=== PATIENT | female | born 1975 | race Caucasian/White ===

== ENCOUNTER 2017-07-22 18:22 | Emergency (ER) | payer MEDICAID, OTHER ==
[~2017-07-22] VITALS: Ht 157.5 cm; Wt 85.1 kg
[~2017-07-22 18:22] MED LIST: CYCL-319 PO; HYDR-3498 PO; IBUP-1542 PO
[2017-07-22 18:27] VITALS: Ht 157.5 cm; Wt 85.1 kg
[2017-07-22] MEDS ORDERED: LIDOCAINE 1% (MDV) 20 ML INJ SC ONE (19:30)
[2017-07-22] MEDS ORDERED: SULF1TAB31 PO (20:00)
[2017-07-22] MEDS ORDERED: IBUP-1542 PO (20:00)
[2017-07-22] MEDS ORDERED: HYDR-906 PO (20:00)
[2017-07-22] MEDS ORDERED: CEPH-443 PO (20:00)
--- NOTE | 2017-07-22 20:43 | ERD ---
ER Documentation Chief Complaint Chief Complaint Complains of vaginal swelling, abscess today HPI This patient is a 42-year-old Frisian-speaking only female with no significant medical history presenting to the emergency department with complaints of abscess to her right labia intermittently for the past 4 days. Symptoms are worsening. It is associated with pain. She denies fevers, chills, or other symptoms currently. ROS All systems reviewed and are negative except as per history of present illness. Medications Home Meds Active Scripts Ibuprofen* (Motrin*) 600 Mg Tab, 600 MG PO Q6, #30 TAB Prov:DWAIN WARNER PA-C 07/22/17 Hydrocodone/Acetaminophen ([place] 5-325 Tablet) 1 Each Tablet, 1 TAB PO Q6H Y for PAIN, #12 TAB Prov:DWAIN WARNER PA-C 07/22/17 Cephalexin* (Keflex*) 500 Mg Capsule, 500 MG PO TID for 7 Days, #21 CAP Prov:DWAIN WARNER PA-C 07/22/17 Sulfamethoxazole/Trimethoprim* (Bactrim Ds* Tablet) 1 Each Tablet, 1 TAB PO BID , #14 TAB Prov:DWAIN WARNER PA-C 07/22/17 Cyclobenzaprine Hcl* (Cyclobenzaprine Hcl*) 10 Mg Tablet, 10 MG PO TID, #20 TAB Prov:JOSE REYES PA-C 04/09/15 Ibuprofen* (Motrin*) 600 Mg Tab, 600 MG PO Q6, #30 TAB Prov:JOSE REYES PA-C 04/09/15 Hydrocodone Bit-Acetaminophen* ([place]*) 5-325 Mg Tab, 1 TAB PO Q6 Y for PAIN, # 20 TAB Prov:JOSE REYES PA-C 04/09/15 Allergies Allergies: Coded Allergies: No Known Drug Allergies (Verified Allergy, Unknown, 04/09/15) PMhx/Soc Medical and Surgical Hx: pt denies Medical Hx, pt denies Surgical Hx Hx Alcohol Use: No Hx Substance Use: No Hx Tobacco Use: No Physical Exam Vitals Vital Signs Date Time Temp Pulse Resp B/P Pulse Ox O2 Delivery O2 Flow Rate FiO2 07/22/17 18:27 97.9 49 20 139/87 98 Physical Exam Const: Nontoxic, well-appearing female in no acute distress. Head: Atraumatic Eyes: Normal Conjunctiva ENT: Normal External Ears, Nose and Mouth. Pelvic Exam: Female RN wax machine operator present Abdomen: [Nontender] External Genitalia: The right labia is significantly enlarged secondary to soft tissue infection with areas of fluctuance and induration. There are multiple central pustules noted. Skin: No petechiae or rashes Back: No midline or flank tenderness Neur: Awake and alert Psych: Normal Mood and Affect Results 24 hrs Current Medications Medications (Trade) Dose Ordered Sig/Brannon Route PRN Reason Start Time Stop Time Status Last Admin Dose Admin Lidocaine (Xylocaine 1% (Mdv) 20 ml) 20 ml ONCE ONCE SC 07/22/17 19:30 07/22/17 19:31 DC Procedures/MDM 42-year-old female presenting to the emergency department for Bartholin abscess to the right labial area. Abscess Incision and Drainage with irrigation by me, with RN female wax machine operator present. Location: Right labia Anesthesia: [Local 1% Lidocaine] Technique: Incision, drainage with disruption of loculations Packing: [None] Complications: [Neurovascularly intact post procedure] 48 hour wound check. Scar minimization instructions given. Patient's skin symptoms have stabilized while they have been evaluated in the department and are appropriate for outpatient care and work up. Exam and w/u not consistent w/ sepsis, deep space infection, or foreign body. Patient tolerated procedure well. Patient is to have close BOOT TRIMMER follow-up. Patient was given prescriptions for Bactrim and Keflex. She agreed with the discharge plan a diagnosis. No evidence of life-threatening pathology at time of discharge. Pt/family in agreement with discharge plan/diagnosis. Pt/family advised to return immediately with any new or worsening symptoms. Follow-up with primary care physician within the next 1-2 days. Disclaimer: Inadvertent spelling and grammatical errors are likely due to EHR/ dictation software use and do not reflect on the overall quality of patient care. Also, please note that the electronic time recorded on this note does not necessarily reflect the actual time of the patient encounter. Departure Diagnosis: Primary Impression: Bartholin's gland abscess Condition: Fair Patient Instructions: Bartholin's Cyst (I And D) Referrals: BOOT TRIM[place] [id number] [address] OFFICE FAX , ERICK [address] [place] [address] DR. VELIZ, [place] [address] [place] [address] DR JACKSON, [facility] [address] [address] [facility], [address], [place] [address] DR BRANNON, [facility] [address] [place] [address] [facility] [address] [place] [address] 7535 [facility] [address] - DR STEINER, JAMES [address], [place] [address] DR SHAHID, [place] [address] [facility]. [address] [address] DR ZEPEDA, [facility] [address] [place] [address] [facility] () Usted se vasquez hecho un examen mdico de control que le indica que no est en kt condicin que requiera tratamiento urgente en el Departamento de Emergencia. Un estudio ms profundo y el tratamiento de olvera condicin pueden esperar sin ningn riesgo hasta que usted sea atendida/o en el consultorio de olvera mdico o kt cl garcia. Es responsabilidad suya arreglar kt radha para el seguimiento del betsey. MANEJO DE CONDICIONES NO URGENTES EN EL FUTURO 1) Si usted tiene un mdico de atencin primaria: Usted debera llamar a olvera mdico de atencin primaria antes de venir al departamento de emergencia. Despus de las horas de consultorio, olvera doctor o olvera asociado/a est disponible por telfono. El mdico o enfermero de anjelica en el servicio telefnico puede asesorarle por angela medio para atender el problema, o betsey contrario se puede programar kt radha. 2) Si usted no tiene un mdico de atencin primaria: Llame al mdico o clnica de referencia que aparece abajo cecelia las horas de consultorio para hacer kt radha para que le vean. CLINICAS: [facility] [phone] [address] [facility] [phone] [address]. [facility] [[email or web address] [phone] [address] [facility]. [place] [id number] [phone] [facility]. [place] 838338 [phone] [facility]. [phone] [address] Additional Instructions: Es muy importante completar todas antibioticos. Es muy important va a kt otra radha con kt specialista de gynecolgia No mas mejor en 2-3 urbano, regresar. Mas peor en 24 horas, regresear rapidamente. Ir a doctor primario en 1-2 urbano. Usar instrucciones cuando tia medicamento. DWAIN WARNER PA-C Jul 22, 2017 20:43
--- NOTE | 2017-07-22 20:43 | ERD ---
ER Documentation Chief Complaint Chief Complaint Complains of vaginal swelling, abscess today HPI This patient is a 42-year-old Setswana-speaking only female with no significant medical history presenting to the emergency department with complaints of abscess to her right labia intermittently for the past 4 days. Symptoms are worsening. It is associated with pain. She denies fevers, chills, or other symptoms currently. ROS All systems reviewed and are negative except as per history of present illness. Medications Home Meds Active Scripts Ibuprofen* (Motrin*) 600 Mg Tab, 600 MG PO Q6, #30 TAB Prov:DWAIN WARNER PA-C 07/22/17 Hydrocodone/Acetaminophen ([place] 5-325 Tablet) 1 Each Tablet, 1 TAB PO Q6H Y for PAIN, #12 TAB Prov:DWAIN WARNER PA-C 07/22/17 Cephalexin* (Keflex*) 500 Mg Capsule, 500 MG PO TID for 7 Days, #21 CAP Prov:DWAIN WARNER PA-C 07/22/17 Sulfamethoxazole/Trimethoprim* (Bactrim Ds* Tablet) 1 Each Tablet, 1 TAB PO BID , #14 TAB Prov:DWAIN WARNER PA-C 07/22/17 Cyclobenzaprine Hcl* (Cyclobenzaprine Hcl*) 10 Mg Tablet, 10 MG PO TID, #20 TAB Prov:JOSE REYES PA-C 04/09/15 Ibuprofen* (Motrin*) 600 Mg Tab, 600 MG PO Q6, #30 TAB Prov:JOSE REYES PA-C 04/09/15 Hydrocodone Bit-Acetaminophen* ([place]*) 5-325 Mg Tab, 1 TAB PO Q6 Y for PAIN, # 20 TAB Prov:JOSE REYES PA-C 04/09/15 Allergies Allergies: Coded Allergies: No Known Drug Allergies (Verified Allergy, Unknown, 04/09/15) PMhx/Soc Medical and Surgical Hx: pt denies Medical Hx, pt denies Surgical Hx Hx Alcohol Use: No Hx Substance Use: No Hx Tobacco Use: No Physical Exam Vitals Vital Signs Date Time Temp Pulse Resp B/P Pulse Ox O2 Delivery O2 Flow Rate FiO2 07/22/17 18:27 97.9 49 20 139/87 98 Physical Exam Const: Nontoxic, well-appearing female in no acute distress. Head: Atraumatic Eyes: Normal Conjunctiva ENT: Normal External Ears, Nose and Mouth. Pelvic Exam: Female RN senior net engineer present Abdomen: [Nontender] External Genitalia: The right labia is significantly enlarged secondary to soft tissue infection with areas of fluctuance and induration. There are multiple central pustules noted. Skin: No petechiae or rashes Back: No midline or flank tenderness Neur: Awake and alert Psych: Normal Mood and Affect Results 24 hrs Current Medications Medications (Trade) Dose Ordered Sig/Brannon Route PRN Reason Start Time Stop Time Status Last Admin Dose Admin Lidocaine (Xylocaine 1% (Mdv) 20 ml) 20 ml ONCE ONCE SC 07/22/17 19:30 07/22/17 19:31 DC Procedures/MDM 42-year-old female presenting to the emergency department for Bartholin abscess to the right labial area. Abscess Incision and Drainage with irrigation by me, with RN female senior net engineer present. Location: Right labia Anesthesia: [Local 1% Lidocaine] Technique: Incision, drainage with disruption of loculations Packing: [None] Complications: [Neurovascularly intact post procedure] 48 hour wound check. Scar minimization instructions given. Patient's skin symptoms have stabilized while they have been evaluated in the department and are appropriate for outpatient care and work up. Exam and w/u not consistent w/ sepsis, deep space infection, or foreign body. Patient tolerated procedure well. Patient is to have close MARSH BUGGY OPERATOR follow-up. Patient was given prescriptions for Bactrim and Keflex. She agreed with the discharge plan a diagnosis. No evidence of life-threatening pathology at time of discharge. Pt/family in agreement with discharge plan/diagnosis. Pt/family advised to return immediately with any new or worsening symptoms. Follow-up with primary care physician within the next 1-2 days. Disclaimer: Inadvertent spelling and grammatical errors are likely due to EHR/ dictation software use and do not reflect on the overall quality of patient care. Also, please note that the electronic time recorded on this note does not necessarily reflect the actual time of the patient encounter. Departure Diagnosis: Primary Impression: Bartholin's gland abscess Condition: Fair Patient Instructions: Bartholin's Cyst (I And D) Referrals: MARSH BUGGY OPERATOR [place] [address] [address] OFFICE FAX , ERICK [address] [place] [address] DR. VELIZ, [place] [address] [place] [address] DR JACKSON, [facility] [address] [address] [facility], [address], [place] [address] DR BRANNON, [facility] [address] [place] [address] [facility] [address] [place] [address] 7535 [facility] [address] - DR STEINER, JAMES [address] [address] DR SHAHID, [place] [address] [facility]. [address], [place] [address] DR ZEPEDA, [facility] [address] [place] [address] [facility] () Usted se vasquez hecho un examen mdico de control que le indica que no est en kt condicin que requiera tratamiento urgente en el Departamento de Emergencia. Un estudio ms profundo y el tratamiento de olvera condicin pueden esperar sin ningn riesgo hasta que usted sea atendida/o en el consultorio de olvera mdico o kt cl garcia. Es responsabilidad suya arreglar kt radha para el seguimiento del betsey. MANEJO DE CONDICIONES NO URGENTES EN EL FUTURO 1) Si usted tiene un mdico de atencin primaria: Usted debera llamar a olvera mdico de atencin primaria antes de venir al departamento de emergencia. Despus de las horas de consultorio, olvera doctor o olvera asociado/a est disponible por telfono. El mdico o enfermero de anjelica en el servicio telefnico puede asesorarle por angela medio para atender el problema, o betsey contrario se puede programar kt radha. 2) Si usted no tiene un mdico de atencin primaria: Llame al mdico o clnica de referencia que aparece abajo cecelia las horas de consultorio para hacer kt radha para que le vean. CLINICAS: [facility] [phone] [address] [place] [address] [address] [facility] [phone] [address]. [facility] [phone] [address] [facility]. [place] 643128 [phone] IS[address] [facility]. [place] 726268 [phone] [facility]. [phone] 1600 [address] MAYERS Additional Instructions: Es muy importante completar todas antibioticos. Es muy important va a kt otra radha con kt specialista de gynecolgia No mas mejor en 2-3 urbano, regresar. Mas peor en 24 horas, regresear rapidamente. Ir a doctor primario en 1-2 urbano. Usar instrucciones cuando tia medicamento. DWAIN WARNER PA-C Jul 22, 2017 20:43
--- NOTE | 2017-07-22 20:43 | ERD ---
ER Documentation Chief Complaint Chief Complaint Complains of vaginal swelling, abscess today HPI This patient is a 42-year-old Yakut-speaking only female with no significant medical history presenting to the emergency department with complaints of abscess to her right labia intermittently for the past 4 days. Symptoms are worsening. It is associated with pain. She denies fevers, chills, or other symptoms currently. ROS All systems reviewed and are negative except as per history of present illness. Medications Home Meds Active Scripts Ibuprofen* (Motrin*) 600 Mg Tab, 600 MG PO Q6, #30 TAB Prov:DWAIN WARNER PA-C 07/22/17 Hydrocodone/Acetaminophen ([place] 5-325 Tablet) 1 Each Tablet, 1 TAB PO Q6H Y for PAIN, #12 TAB Prov:DWAIN WARNER PA-C 07/22/17 Cephalexin* (Keflex*) 500 Mg Capsule, 500 MG PO TID for 7 Days, #21 CAP Prov:DWAIN WARNER PA-C 07/22/17 Sulfamethoxazole/Trimethoprim* (Bactrim Ds* Tablet) 1 Each Tablet, 1 TAB PO BID , #14 TAB Prov:DWAIN WARNER PA-C 07/22/17 Cyclobenzaprine Hcl* (Cyclobenzaprine Hcl*) 10 Mg Tablet, 10 MG PO TID, #20 TAB Prov:JOSE REYES PA-C 04/09/15 Ibuprofen* (Motrin*) 600 Mg Tab, 600 MG PO Q6, #30 TAB Prov:JOSE REYES PA-C 04/09/15 Hydrocodone Bit-Acetaminophen* ([place]*) 5-325 Mg Tab, 1 TAB PO Q6 Y for PAIN, # 20 TAB Prov:JOSE REYES PA-C 04/09/15 Allergies Allergies: Coded Allergies: No Known Drug Allergies (Verified Allergy, Unknown, 04/09/15) PMhx/Soc Medical and Surgical Hx: pt denies Medical Hx, pt denies Surgical Hx Hx Alcohol Use: No Hx Substance Use: No Hx Tobacco Use: No Physical Exam Vitals Vital Signs Date Time Temp Pulse Resp B/P Pulse Ox O2 Delivery O2 Flow Rate FiO2 07/22/17 18:27 97.9 49 20 139/87 98 Physical Exam Const: Nontoxic, well-appearing female in no acute distress. Head: Atraumatic Eyes: Normal Conjunctiva ENT: Normal External Ears, Nose and Mouth. Pelvic Exam: Female RN developmental mathematics professor present Abdomen: [Nontender] External Genitalia: The right labia is significantly enlarged secondary to soft tissue infection with areas of fluctuance and induration. There are multiple central pustules noted. Skin: No petechiae or rashes Back: No midline or flank tenderness Neur: Awake and alert Psych: Normal Mood and Affect Results 24 hrs Current Medications Medications (Trade) Dose Ordered Sig/Brannon Route PRN Reason Start Time Stop Time Status Last Admin Dose Admin Lidocaine (Xylocaine 1% (Mdv) 20 ml) 20 ml ONCE ONCE SC 07/22/17 19:30 07/22/17 19:31 DC Procedures/MDM 42-year-old female presenting to the emergency department for Bartholin abscess to the right labial area. Abscess Incision and Drainage with irrigation by me, with RN female developmental mathematics professor present. Location: Right labia Anesthesia: [Local 1% Lidocaine] Technique: Incision, drainage with disruption of loculations Packing: [None] Complications: [Neurovascularly intact post procedure] 48 hour wound check. Scar minimization instructions given. Patient's skin symptoms have stabilized while they have been evaluated in the department and are appropriate for outpatient care and work up. Exam and w/u not consistent w/ sepsis, deep space infection, or foreign body. Patient tolerated procedure well. Patient is to have close ENTREPRENEUR follow-up. Patient was given prescriptions for Bactrim and Keflex. She agreed with the discharge plan a diagnosis. No evidence of life-threatening pathology at time of discharge. Pt/family in agreement with discharge plan/diagnosis. Pt/family advised to return immediately with any new or worsening symptoms. Follow-up with primary care physician within the next 1-2 days. Disclaimer: Inadvertent spelling and grammatical errors are likely due to EHR/ dictation software use and do not reflect on the overall quality of patient care. Also, please note that the electronic time recorded on this note does not necessarily reflect the actual time of the patient encounter. Departure Diagnosis: Primary Impression: Bartholin's gland abscess Condition: Fair Patient Instructions: Bartholin's Cyst (I And D) Referrals: ENTREPRENEUR [place] [address] [address] OFFICE FAX , ERICK [address] [place] [address] DR. VELIZ, [place] [address] [place] [address] DR JACKSON, [facility] [address] [address] [facility], [address], [place] [address] DR BRANNON, [facility] [address] [place] [address] [facility] [address] [place] [address] 7535 [facility] [address] - DR SETINER, JAMES [address], [place] [address] DR SHAHID, [place] [address] [facility]. [address], [place] [address] DR ZEPEDA, [facility] [address] [place] [address] [facility] () Usted se vasquez hecho un examen mdico de control que le indica que no est en kt condicin que requiera tratamiento urgente en el Departamento de Emergencia. Un estudio ms profundo y el tratamiento de olvera condicin pueden esperar sin ningn riesgo hasta que usted sea atendida/o en el consultorio de olvera mdico o kt cl garcia. Es responsabilidad suya arreglar kt radha para el seguimiento del betsey. MANEJO DE CONDICIONES NO URGENTES EN EL FUTURO 1) Si usted tiene un mdico de atencin primaria: Usted debera llamar a olvera mdico de atencin primaria antes de venir al departamento de emergencia. Despus de las horas de consultorio, olvera doctor o olvera asociado/a est disponible por telfono. El mdico o enfermero de anjelica en el servicio telefnico puede asesorarle por angela medio para atender el problema, o betsey contrario se puede programar kt radha. 2) Si usted no tiene un mdico de atencin primaria: Llame al mdico o clnica de referencia que aparece abajo cecelia las horas de consultorio para hacer kt radha para que le vean. CLINICAS: [facility] [phone] [address] [facility] [phone] 75[address]. [facility] [phone] [address] [facility]. [place] 488718 [phone] [facility]. [place] 398908 [phone] [facility]. [phone] 1600 [address] MAYERS Additional Instructions: Es muy importante completar todas antibioticos. Es muy important va a kt otra radha con kt specialista de gynecolgia No mas mejor en 2-3 urbano, regresar. Mas peor en 24 horas, regresear rapidamente. Ir a doctor primario en 1-2 urbano. Usar instrucciones cuando tia medicamento. DWAIN WARNER PA-C Jul 22, 2017 20:43
== END 2017-07-22 20:16 | disposition home or self-care (01) ==
LOC: FTE 18:22
DX: N75.1 Abscess of Bartholin's gland (principal)